=== PATIENT | male | born 1995 ===

== ENCOUNTER → 2018-05-31 | Outpatient (REF) | payer BC ==
[~2018-05-31] MED LIST: LORA10CA3 PO; MONT10TA PO; TRIA5PAS12 DT; [UNRECOGNIZED DRUG - CODE] PR
[2018-05-31 13:58] LABS: PLATELET COUNT, AUTOMATED 282 K/uL (150-450)
== END ==
PROVIDERS: ATTEND Nurse Practitioner Family
DX: R50.9 Fever, unspecified (principal)
CPT/HCPCS: 82040; 82247; 82310; 82374; 82435; 82565; 82947; 84075; 84132; 84155; 84295; 84450; 84460; 84520; 85025